=== PATIENT | male | born 2000 | race Caucasian/White ===

== ENCOUNTER 2024-11-30 22:28 | Emergency (ER) | payer SELFPAY ==
[~2024-11-30] VITALS: Ht 182.9 cm; Wt 86.0 kg
[2024-11-30 22:46] VITALS: TEMP 36.8; O2SAT 98
[2024-12-01 00:27] LABS: BASOPHILS % 0.6 % (0.0-2.0); EOSINOPHILS % 0.9 % (0.0-5.0); HEMATOCRIT. 42.6 % (42.0-52.0); LYMPHOCYTES % 36.6 % (20.0-50.0); MEAN CORPUSCULAR HEMOGLOBIN 28.5 pg (28.0-32.0); MEAN CORPUSCULAR HGB CONC 35.3 g/dL (31.0-37.0); MEAN CORPUSCULAR VOLUME 80.7 fL (80.0-94.0); MEAN PLATELET VOLUME 9.4 fl (7.4-10.4); MONOCYTES % 8.1 % (2.0-8.0); NEUTROPHILS % 53.8 % (40.0-76.0); PLATELET 213 x1000/uL (130-400); RED BLOOD CELL COUNT 5.29 mill/uL (4.7-6.1); RED CELL DISTRIBUTION WIDTH 13.2 % (11.6-14.6); WHITE BLOOD COUNT 5.9 x1000/uL (4.5-11.0)
[2024-12-01 00:33] LABS: CHLORIDE 111 mEq/L (98-107); POTASSIUM 3.6 mEq/L (3.5-5.1); SODIUM 144 mEq/L (136-145)
[2024-12-01 00:34] LABS: CALCIUM 10.1 mg/dL (8.7-10.4); CARBON DIOXIDE 27 mEq/L (21-32)
[2024-12-01 00:39] LABS: CREATININE 0.9 mg/dL (0.6-1.3); GLUCOSE 98 mg/dL (70-105); UREA NITROGEN BLOOD 14 mg/dL (9-23)
[2024-12-01 01:20] LABS: PROTHROMBIN TIME 10.4 sec (9.6-11.0)
[2024-12-01 02:26] VITALS: BP 146/96; PULSE 79; RESP 16; O2SAT 99
== END 2024-12-01 02:27 | disposition home or self-care (01) ==
LOC: ER 23:18
DX: M79.651 Pain in right thigh (principal)
CPT/HCPCS: 36415; 73551; 73700; 80048; 85025; 93005; 93971; 99285